=== PATIENT | female | born 1975 | race Two or more races ===

== ENCOUNTER 2025-08-02 10:05 | Emergency (ER) | payer MEDICAID, OTHER ==
[~2025-08-02] VITALS: Ht 157.5 cm; Wt 65.0 kg
[2025-08-02 10:05] VITALS: PULSE 71; RESP 19; O2SAT 98
[2025-08-02] MEDS: ONDANSETRON HCL 4 MG/2 ML VIAL IV ONE (10:05)
[2025-08-02] MEDS: HYDROmorphone HCL 2 MG/ML VL/or syr IV ONE (10:05)
[2025-08-02 10:09] VITALS: TEMP 98.7
--- NOTE | 2025-08-02 10:40 | ED.PDOC ---
Musculoskeletal HPI Comments This is a 50 year-old female who presents to the ED via EMS with a chief complaint of R ankle dislocation and possible fracture S/P falling off a ladder minutes ago. Patient has no further complaints or modifying factors at this time, and otherwise denies further associated symptoms of LOC, head trauma, N/V/D, or dizziness. 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 Family History Family History: Unknown Social History Smoker: Non-Smoker Alcohol: Denies ETOH Use Drugs: Denies Drug Use Lives In: Home Constitutional: denies: chills, diaphoresis, fatigue, fever, malaise, sweats, weakness, others EENTM: denies: blurred vision, double vision, ear bleeding, ear discharge, ear drainage, ear pain, ear ringing, eye pain, eye redness, hearing loss, mouth pain, mouth swelling, nasal discharge, nose bleeding, nose congestion, nose pain, photophobia, tearing, throat pain, throat swelling, voice changes, others Respiratory: denies: cough, hemoptysis, orthopnea, SOB at rest, shortness of breath, SOB with excertion, stridor, wheezing, others Cardiovascular: denies: chest pain, dizzy spells, diaphoresis, Dyspnea on exertion, edema, irregular heart beat, left arm pain, lightheadedness, palpitations, PND, syncope, others Gastrointestinal: denies: abdomen distended, abdominal pain, blood streaked bowels, constipated, diarrhea, dysphagia, difficulty swallowing, hematemesis, melena, nausea, poor appetite, poor fluid intake, rectal bleeding, rectal pain, vomiting, others Genitourinary: denies: abnormal vagina bleeding, burning, dyspareunia, dysuria, flank pain, frequency, hematuria, incontinence, pain, , vagina discharge, urgency, others Neurological: denies: dizziness, fainting, headache, left sided numbness, left sided weakness, numbness, paresthesia, pre-existing deficit, right sided numbness, right sided weakness, seizure, speech problems, tingling, tremors, weakness, others Musculoskeletal: reports: joint pain, joint swelling, others (Visibly dislocated R foot ); denies: back pain, gout, muscle pain, muscle stiffness, neck pain Integumetry: denies: bruises, change in color, change in hair/nails, dryness, laceration, lesions, lumps, rash, wounds, others Allergic/Immunocompromised: denies: Difficulty Healing, Frequent Infections, Hives, Itching, others Hematologic/Lymphatic: denies: anemia, blood clots, easy bleeding, easy bruising, swollen glands, others Endocrine: denies: excessive hunger, excessive sweating, excessive thirst, excessive urination, flushing, intolerance to cold, intolerance to heat, une xplained weight gain, unexplained weight loss, others Psychiatric: denies: anxiety, bipolar disorder, depression, hopeless, panic disorder, schizophrenia, sleepless, suicidal, others All Other Systems: Reviewed and Negative Physical Exam General Appearance: Moderate Distress HEENT: Normal ENT Inspection, Pharynx Normal, TMs Normal Neck: Full Range of Motion, Non-Tender, Normal, Normal Inspection Respiratory: Chest Non-Tender, Lungs Clear, No Accessory Muscle Use, No Respiratory Distress, Normal Breath Sounds Cardiovascular: No Edema, No JVD, No Murmur, No Gallop, Normal Peripheral Pulses, Regular Rate/Rhythm Breast Exam: Deferred Gastrointestinal: No Organomegaly, Non Tender, No Pulsatile Mass, Normal Bowel Sounds, Soft Genitalia: Deferred Pelvic: Deferred Rectal: Deferred Extremities: Other (Deformity right ankle) Musculoskeletal : Apperance: Normal Neurologic: Alert, No Motor Deficits, No Sensory Deficits Cerebellar Function: NOT DONE Reflexes: NOT DONE Skin: Normal Color Peripheral Pulses: 3+ Radial (R), 3+ Radial (L) Lymphatic: No Adenopathy Was a procedure done? Was a procedure done?: Yes Sedation Sedation?: No Reduction Indication: Dislocation Sedation: Ankle Post-reduction x-ray show: Good Alignment Differential Diagnosis EXT Differential Diagnosis: Fracture, Sprain, Dislocation X-Ray, Labs, Meds, VS Vital Signs Date Time Temp Pulse Resp B/P (MAP) Pulse Ox O2 Delivery O2 Flow Rate FiO2 08/02/25 11:45 71 18 129/66 (87) 98 08/02/25 11:11 68 19 119/39 08/02/25 10:09 98.7 76 15 151/88 98 98.7 08/02/25 10:07 98.7 71 19 122/54 (76) 98 98.7 08/02/25 10:05 71 19 122/54 08/02/25 10:05 71 19 98 Room Air* 0 21 Current Medications Medications (Trade) Dose Ordered Sig/Alexa Route Start Time Stop Time Status Last Admin Hydromorphone HCl (Dilaudid Injection) 2 mg ONCE ONCE IV 08/02/25 10:15 08/02/25 10:16 DC 08/02/25 10:05 Ondansetron HCl (Zofran) 4 mg ONCE ONCE IV 08/02/25 10:15 08/02/25 10:16 DC 08/02/25 10:05 Acetaminophen/ Hydrocodone Bitart ([place] 10/325MG Tab) 1 tab ONCE ONCE PO 08/02/25 11:30 08/02/25 11:31 DC 08/02/25 11:23 [place] [id number] Ph: [phone] DIAGNOSTIC IMAGING Diagnostic Imaging Report : [id number] Signed PATIENT: Thania Jaimes ACCT: [id number] UNIT: [id number] : 1975 LOC: ER ROOM / BED: / AGE / SEX: 50 / F ADM STATUS: REG ER SERVICE 1018 ORDERING PHYSICIAN: LG GARCÍA MD PROCEDURE(s): RANKL - R ANKLE 3 VIEW REASON: R/O FX ORDER NUMBER(s): [id number], ACCESSION NUMBER(s): [id number] CLINICAL INDICATION: R/O FX TECHNIQUE: 2 radiographic views of the right ankle were obtained. Comparison: None FINDINGS/IMPRESSION: Bony alignment normal. There is no fracture or dislocation. Patient alert. Right ankle deformity. Vitals stable. Answering all questions. Was given pain medication. X-ray of the right ankle does show deformity. Good pulses. Was given Zofran. X-ray after reduction does show good alignment. Did not wait for the x-ray for deformed ankle. Was able to reduce prior to the x-ray. Placed a splint. Patient comfortable. Was told to follow up with her primary care physician. Was told to come back if there is any problem. Images Reviewed?: Images reviewed and evaluated by me Time of 1ST Reevaluation: 10:49 Reevaluation 1ST: Unchanged Patient Education/Counseling: Diagnosis, Treatment Family Education/Counseling: No Family Present Departure 1 Departure Time of Disposition: 10:57 Impression: Primary Impression: Ankle dislocation Qualified Codes: S93.04XA - Dislocation of right ankle joint, initial encounter Disposition: 01 HOME / SELF CARE / HOMELESS Condition: Good Discharged With: Self Critical Care Note Critical Care Time?: No Stability Stability form required: No Heart Score Heart Score: Heart Score Response (Comments) Value History N/A 0 EKG N/A 0 Age N/A 0 Risk Factors N/A 0 Troponin N/A 0 Total 0 I personally scribed for LG GARCÍA MD ([email or web address]) on 08/02/25 at 10:40. Electronically submitted by Gabriella Adams ([email or web address]). I personally scribed for LG GARCÍA MD ([email or web address]) on 08/02/25 at 11:05. Electronically submitted by Gabriella Adams ([email or web address]). LG GARCÍA MD Aug 02, 2025 10:40
--- NOTE | 2025-08-02 10:50 | DVH ---
CLINICAL INDICATION: R/O FX TECHNIQUE: 2 radiographic views of the right ankle were obtained. Comparison: None FINDINGS/IMPRESSION: Bony alignment normal. There is no fracture or dislocation.
[2025-08-02] MEDS: HYDROcodone-ACET 10/325MG TAB PO ONE (11:23)
[2025-08-02 11:45] VITALS: BP 129/66; PULSE 71; RESP 18; O2SAT 98
== END 2025-08-02 12:03 | disposition home or self-care (01) ==
LOC: ER 10:05
DX: S93.04XA Dislocation of right ankle joint, initial encounter (principal); X58.XXXA Exposure to other specified factors, initial encounter; Y93.89 Activity, other specified; Y92.89 Other specified places as the place of occurrence of the external cause; Y99.8 Other external cause status
CPT/HCPCS: 27840; 73610; 96374; 96375; 99284; J1171; J2405